=== PATIENT | male | born 1960 | race Caucasian/White ===

== ENCOUNTER 2023-10-15 21:49 | Inpatient (IN) | payer MEDICARE, OTHER ==
[~2023-10-15] VITALS: Ht 172.7 cm; Wt 73.5 kg
[~2023-10-15 21:49] MED LIST: LORA2VIA33 IM
[2023-10-15 23:23] LABS: CALCIUM, SERUM 8.9 mg/dL (8.5-10.1); CARBON DIOXIDE 27 mmol/L (21-32); CHLORIDE 105 mmol/L (98-107); CREATININE 0.9 mg/dL (0.6-1.3); GLUCOSE 140 mg/dL (74-106); POTASSIUM 3.5 mmol/L (3.5-5.1); SODIUM SERUM 141 mmol/L (136-145); UREA NITROGEN, BLOOD 28 mg/dL (7-18)
[2023-10-15 23:31] LABS: ACETAMINOPHEN <10 ug/ml (10-30); ALANINE AMINOTRANSFERASE 24 U/L (12-78); ALBUMIN 3.5 g/dL (3.4-5.0); ALCOHOL, BLOOD < 3 mg/dL (0-10); ALKALINE PHOSPHATASE 73 U/L (46-116); ASPARTATE AMINOTRANSFERASE 29 U/L (15-37); BILIRUBIN,TOTAL 0.3 mg/dL (0.2-1.0); SALICYLATE 0.5 mg/dL (2.8-20.0); TOTAL PROTEIN, SERUM 6.8 g/dL (6.4-8.2)
[2023-10-15 23:35] LABS: BASOPHILS % (AUTO) 0.6 % (0.0-2.0); EOSINOPHILS % (AUTO) 0.5 % (0.0-6.0); HEMATOCRIT 40 % (39-51); HEMOGLOBIN 13.5 g/dL (13.5-17.5); LYMPHOCYTES # (AUTO) 2.2 K/uL (0.8-4.8); LYMPHOCYTES % (AUTO) 31.9 % (20.0-44.0); MEAN CORPUSCULAR HEMOGLOBIN 31 PG (26.0-33.0); MEAN CORPUSCULAR HGB CONC 34 g/dl (31.0-36.0); MEAN CORPUSCULAR VOLUME 91 fL (80-96); MONOCYTES # (AUTO) 0.7 K/uL (0.1-1.30); MONOCYTES % (AUTO) 10.4 % (2.0-12.0); NEUTROPHILS # (AUTO) 3.9 K/uL (1.8-8.9); NEUTROPHILS % (AUTO) 56.6 % (43.0-81.0); PLATELET COUNT (AUTO) 194 K/uL (150-450); RED BLOOD CELL COUNT(AUTO) 4.42 MIL/uL (4.5-6.0); RED CELL DISTRIBUTION WIDTH 14.2 % (11.5-15.0)
[2023-10-16 00:24] LABS: APPEARANCE,URINE CLEAR (CLEAR); BILIRUBIN,URINE NEGATIVE (NEGATIVE); BLOOD, URINE NEGATIVE Ery/uL (NEGATIVE); COLOR,URINE YELLOW (YELLOW); KETONES,URINE TRACE mg/dL (NEGATIVE); LEUKOCYTE ESTERASE ,URINE NEGATIVE (NEGATIVE); NITRITE, URINE NEGATIVE (NEGATIVE); PROTEIN,URINE NEGATIVE (NEGATIVE); UGLUCOSE 1+ mg/dL (NEGATIVE); UROBILINOGEN,URINE 0.2 EU/dL (0.2)
[2023-10-16 00:26] LABS: ADD URINE CULTURE NO; BACTERIA,URINE Rare /HPF (None Seen); RBC,URINE 0-2 /HPF (0-2); SQUAMOUS EPITHELIAL CELL,UR Few /HPF (None Seen); WBC,URINE 0-2 /HPF (0-3)
[2023-10-16 00:40] LABS: AMPHETAMINE, URINE NEGATIVE (NEGATIVE); BARBITURATE, URINE NEGATIVE (NEGATIVE); BENZODIAZEPINE, URINE NEGATIVE (NEGATIVE); CANNABINOID, URINE NEGATIVE (NEGATIVE); COCCAINE, URINE NEGATIVE (NEGATIVE); OPIATE, URINE NEGATIVE (NEGATIVE); PHENCYCLIDINE SCREEN,URINE NEGATIVE (NEGATIVE)
[2023-10-16] MEDS ORDERED: DIVA250T4 PO (08:33)
[2023-10-16] MEDS ORDERED: BUSP7.5T7 PO (08:33)
[2023-10-16] MEDS ORDERED: BLOO-668 IN (08:33)
[2023-10-16] MEDS ORDERED: RISP1TAB97 PO (08:33)
[2023-10-16] MEDS ORDERED: DIVALPROEX SODIUM 250 MG TABLET.DR PO SCH (13:00)
[2023-10-16] MEDS ORDERED: MAGNESIUM HYDROXIDE 30 ML UDC PO PRN (15:00)
[2023-10-16] MEDS ORDERED: ACETAMINOPHEN 325 MG TABLET PO PRN (15:00)
[2023-10-16] MEDS ORDERED: MAG HYDROX/AL HYDROX/SIMETH 30 ML UDC PO PRN (15:00)
[2023-10-16] MEDS: BLOOD SUGAR DIAGNOSTIC 1 EACH STRIP IN ONE (15:56)
[2023-10-16 16:00] VITALS: BP 142/79; TEMP 97.3; O2SAT 94
[2023-10-16] MEDS ORDERED: busPIRone 5 MG TABLET PO SCH (17:00)
[2023-10-16 20:00] VITALS: BP 138/67; TEMP 98.4; O2SAT 95
[2023-10-17] MEDS: clonazePAM 0.5 MG TABLET PO PRN (03:01)
[2023-10-17 08:00] VITALS: BP 127/90; TEMP 98; O2SAT 100
[2023-10-17] MEDS: Z GUARD REMEDY 4 OZ OINT TP SCH (08:00)
[2023-10-17] MEDS ORDERED: risperiDONE 0.25 MG TABLET PO SCH (09:00)
[2023-10-17 16:00] VITALS: BP 136/80; TEMP 98.6; O2SAT 98
[2023-10-17] MEDS: DIVALPROEX SODIUM 125 MG CAP.SPRINK PO SCH (17:49)
[2023-10-17] MEDS: risperiDONE 1 MG TABLET PO SCH (17:49)
[2023-10-17 20:00] VITALS: BP 114/90; TEMP 98.4; O2SAT 98
[2023-10-18 08:00] VITALS: BP 151/93; TEMP 97.7; O2SAT 98
[2023-10-18 08:00] LABS: ALBUMIN 3.7 g/dL (3.4-5.0); BILIRUBIN,TOTAL 0.6 mg/dL (0.2-1.0); CALCIUM, SERUM 9.4 mg/dL (8.5-10.1); CREATININE 0.9 mg/dL (0.6-1.3); POTASSIUM 3.7 mmol/L (3.5-5.1); TOTAL PROTEIN, SERUM 7.6 g/dL (6.4-8.2)
[2023-10-18 08:21] LABS: CREATININE 0.9 mg/dL (0.6-1.3)
[2023-10-18 11:18] LABS: CHOLESTEROL 166 mg/dL (<200); HDL CHOLESTEROL 55 mg/dL (40-60); LDL 78 mg/dL (0-99); TRIGLYCERIDES 100 mg/dL (30-150)
[2023-10-18 16:00] VITALS: BP 132/92; TEMP 97.8; O2SAT 96
[2023-10-18] MEDS: risperiDONE 1 MG TABLET PO SCH (17:00)
[2023-10-18 20:19] VITALS: BP 145/73; TEMP 97.9; O2SAT 100
[2023-10-19 08:00] VITALS: BP 146/98; TEMP 98.6; O2SAT 98
[2023-10-19] MEDS: OLANZAPINE 10 MG VIAL IM ONE (09:46)
[2023-10-19] MEDS: risperiDONE 1 MG TABLET PO SCH (13:00)
[2023-10-19] MEDS: diphenhydrAMINE HCL 50 MG/ML VIAL IM ONE (13:40)
[2023-10-19] MEDS: HALOPERIDOL LACTATE INJ 5 MG/ML VIAL IM ONE (13:40)
[2023-10-19 16:00] VITALS: BP 123/97; TEMP 98.2; O2SAT 98
[2023-10-19 20:40] VITALS: TEMP 98.4; O2SAT 98
[2023-10-19] MEDS: TEMAZEPAM 15 MG CAPSULE PO PRN (22:57)
[2023-10-20 08:00] VITALS: BP 142/99; TEMP 97.9; O2SAT 100
[2023-10-20 16:00] VITALS: BP 112/58; TEMP 98.4; O2SAT 97
[2023-10-20 20:49] VITALS: BP 132/88; TEMP 98.4; O2SAT 98
[2023-10-21 08:00] VITALS: BP 119/78; TEMP 97.7; O2SAT 98
[2023-10-21] MEDS: diphenhydrAMINE HCL 50 MG/ML VIAL IM ONE (08:49)
[2023-10-21] MEDS: HALOPERIDOL LACTATE INJ 5 MG/ML VIAL IM ONE (08:49)
[2023-10-21 16:00] VITALS: BP 134/85; TEMP 98.6; O2SAT 97
[2023-10-21 21:13] VITALS: BP 135/85; TEMP 97.8; O2SAT 96
[2023-10-22 08:00] VITALS: BP 152/67; TEMP 98.6; O2SAT 99
[2023-10-22] MEDS: risperiDONE-M 0.5 MG TAB.RAPDIS PO SCH (10:30)
[2023-10-22 16:00] VITALS: BP 117/77; TEMP 97.9; O2SAT 99
[2023-10-22] MEDS: diphenhydrAMINE HCL 50 MG/ML VIAL IM ONE ×2 (19:53→23:52)
[2023-10-22] MEDS: HALOPERIDOL LACTATE INJ 5 MG/ML VIAL IM ONE ×2 (19:54→23:52)
[2023-10-22 21:16] VITALS: BP 145/88; TEMP 97.9; O2SAT 99
[2023-10-23 08:00] VITALS: BP 136/90; TEMP 98.6; O2SAT 98
[2023-10-23] MEDS: HALOPERIDOL LACTATE INJ 5 MG/ML VIAL IM PRN (08:07)
[2023-10-23] MEDS: diphenhydrAMINE HCL 50 MG/ML VIAL IM PRN (08:07)
[2023-10-23 16:00] VITALS: BP 125/88; TEMP 97.6; O2SAT 100
[2023-10-23 20:00] VITALS: BP 130/85; TEMP 97.9; O2SAT 96
[2023-10-24 08:00] VITALS: BP 130/99; TEMP 97.6; O2SAT 98
[2023-10-24 16:00] VITALS: BP 130/87; TEMP 97.9; O2SAT 96
[2023-10-24 20:00] VITALS: BP 130/88; TEMP 98.3; O2SAT 96
[2023-10-25 08:00] VITALS: BP 130/81; TEMP 98; O2SAT 96
[2023-10-25 16:00] VITALS: BP 136/80; TEMP 98; O2SAT 100
[2023-10-26 08:00] VITALS: BP 139/97; TEMP 97.9; O2SAT 97
[2023-10-26 16:00] VITALS: BP 119/57; TEMP 97.8; O2SAT 99
[2023-10-26 20:19] VITALS: BP 128/60; TEMP 98.3; O2SAT 98
[2023-10-27 08:00] VITALS: BP 146/88; TEMP 98.1; O2SAT 98
[2023-10-27] MEDS: risperiDONE-M 0.5 MG TAB.RAPDIS PO SCH (13:00)
[2023-10-27] MEDS: DIVALPROEX SODIUM 125 MG CAP.SPRINK PO SCH (13:00)
[2023-10-27 16:00] VITALS: BP 156/90; TEMP 98.1; O2SAT 97
[2023-10-27 20:00] VITALS: BP 102/84; TEMP 98; O2SAT 99
[2023-10-27 20:54] VITALS: BP 102/84; TEMP 98; O2SAT 99
[2023-10-28 08:00] VITALS: BP 145/81; TEMP 98.6; O2SAT 96
[2023-10-28] MEDS: HALOPERIDOL LACTATE INJ 5 MG/ML VIAL IM PRN (12:25)
[2023-10-28] MEDS: diphenhydrAMINE HCL 50 MG/ML VIAL IM PRN (12:26)
[2023-10-28 16:00] VITALS: BP 118/83; TEMP 97.7; O2SAT 97
[2023-10-28 20:45] VITALS: BP 101/61; TEMP 98.2; O2SAT 99
[2023-10-29] MEDS: diphenhydrAMINE HCL 50 MG/ML VIAL IM ONE (07:13)
[2023-10-29] MEDS: LORAZEPAM INJ 2 MG/ML VIAL IM/IV ONE (07:13)
[2023-10-29] MEDS: HALOPERIDOL LACTATE INJ 5 MG/ML VIAL IM ONE (07:13)
[2023-10-29] MEDS: LORAZEPAM INJ 2 MG/ML VIAL ONE (07:57)
[2023-10-29 08:00] VITALS: BP 110/87; TEMP 98.7; O2SAT 98
[2023-10-29] MEDS: METFORMIN 500 MG TABLET PO SCH (09:17)
[2023-10-29] MEDS ORDERED: diphenhydrAMINE HCL 50 MG/ML VIAL IV PRN (12:30)
[2023-10-29] MEDS: HALOPERIDOL DECANOATE IM 100 MG/ML AMPUL IM ONE (14:27)
[2023-10-29 16:00] VITALS: BP 111/80; TEMP 98.6; O2SAT 98
[2023-10-29 20:21] VITALS: BP 103/73; TEMP 98.1; O2SAT 98
[2023-10-29] MEDS: risperiDONE-M 0.5 MG TAB.RAPDIS ONE (22:47)
[2023-10-30 08:00] VITALS: BP 130/70; TEMP 97.6; O2SAT 98
[2023-10-30 16:00] VITALS: BP 129/63; TEMP 98; O2SAT 98
[2023-10-31 08:00] VITALS: BP 160/90; TEMP 98; O2SAT 99
[2023-10-31 15:30] VITALS: BP 130/86; TEMP 98; O2SAT 100
== END 2023-10-31 16:00 | DRG 885 ==
LOC: ER 22:15 → TRANSITION 10-16 10:28 → GPS 10-16 14:01
PROVIDERS: ADMIT Psychiatry & Neurology Psychiatry; ATTEND Nurse Practitioner Acute Care
DX: F25.0 Schizoaffective disorder, bipolar type (principal); I10 Essential (primary) hypertension; E03.9 Hypothyroidism, unspecified; E78.5 Hyperlipidemia, unspecified; R26.81 Unsteadiness on feet; F41.9 Anxiety disorder, unspecified; Z11.52 Encounter for screening for COVID-19
CPT/HCPCS: 36415; 80053-TC; 80061-TC; 81001; 82565-TC; 82962-TC; 85025-TC; 97112-TC; 97116-TC; 97530-TC; G0480; J1200; J1630; J1631; J2060; J3490

== ENCOUNTER 2024-03-26 12:56 | Inpatient (IN) | payer MEDICARE, OTHER ==
[~2024-03-26] VITALS: Ht 165.1 cm; Wt 74.8 kg
[~2024-03-26 12:56] MED LIST changes: +BLOO-668 IN; +BUSP7.5T7 PO; +DIVA250T4 PO; +RISP1TAB97 PO
[2024-03-26 13:36] LABS: BASOPHILS % (AUTO) 0.6 % (0.0-2.0); EOSINOPHILS % (AUTO) 0.4 % (0.0-6.0); HEMATOCRIT 48 % (39-51); HEMOGLOBIN 16.3 g/dL (13.5-17.5); LYMPHOCYTES # (AUTO) 1.7 K/uL (0.8-4.8); LYMPHOCYTES % (AUTO) 31.8 % (20.0-44.0); MEAN CORPUSCULAR HEMOGLOBIN 32 PG (26.0-33.0); MEAN CORPUSCULAR HGB CONC 34 g/dl (31.0-36.0); MEAN CORPUSCULAR VOLUME 92 fL (80-96); MONOCYTES # (AUTO) 0.4 K/uL (0.1-1.30); NEUTROPHILS # (AUTO) 3.2 K/uL (1.8-8.9); NEUTROPHILS % (AUTO) 59.2 % (43.0-81.0); PLATELET COUNT (AUTO) 202 K/uL (150-450); RED BLOOD CELL COUNT(AUTO) 5.18 MIL/uL (4.5-6.0); RED CELL DISTRIBUTION WIDTH 13.8 % (11.5-15.0); WHITE BLOOD COUNT (AUTO) 5.4 K/uL (4.3-11.0)
[2024-03-26 13:42] LABS: CALCIUM, SERUM 9.5 mg/dL (8.5-10.1); CARBON DIOXIDE 29 mmol/L (21-32); CHLORIDE 103 mmol/L (98-107); CREATININE 0.9 mg/dL (0.6-1.3); GLUCOSE 171 mg/dL (74-106); POTASSIUM 4.5 mmol/L (3.5-5.1); SODIUM SERUM 140 mmol/L (136-145); UREA NITROGEN, BLOOD 21 mg/dL (7-18)
[2024-03-26 13:47] LABS: ALANINE AMINOTRANSFERASE 16 U/L (12-78); ALBUMIN 3.6 g/dL (3.4-5.0); ALCOHOL, BLOOD < 3 mg/dL (0-10); ALKALINE PHOSPHATASE 84 U/L (46-116); ASPARTATE AMINOTRANSFERASE 12 U/L (15-37); BILIRUBIN,DIRECT 0.1 mg/dL (0.0-0.2); BILIRUBIN,TOTAL 0.3 mg/dL (0.2-1.0); TOTAL PROTEIN, SERUM 7.4 g/dL (6.4-8.2)
[2024-03-26 13:49] LABS: ACETAMINOPHEN <10 ug/ml (10-30); SALICYLATE 1.4 mg/dL (2.8-20.0)
[2024-03-26] MEDS ORDERED: ACET-868 PO (14:27)
[2024-03-26] MEDS ORDERED: DOCU100T2 PO (14:27)
[2024-03-26] MEDS ORDERED: BENZ0.5T43 PO (14:27)
[2024-03-26] MEDS ORDERED: DIVA-78 PO (14:27)
[2024-03-26] MEDS ORDERED: QUET100T PO (14:27)
[2024-03-26] MEDS ORDERED: OLAN15TA3 PO (14:27)
[2024-03-26 15:02] LABS: APPEARANCE,URINE CLEAR (CLEAR); BILIRUBIN,URINE NEGATIVE (NEGATIVE); BLOOD, URINE NEGATIVE Ery/uL (NEGATIVE); COLOR,URINE YELLOW (YELLOW); KETONES,URINE TRACE mg/dL (NEGATIVE); LEUKOCYTE ESTERASE ,URINE NEGATIVE (NEGATIVE); NITRITE, URINE NEGATIVE (NEGATIVE); PH,URINE 7.5 (5.0-8.0); PROTEIN,URINE NEGATIVE (NEGATIVE); UGLUCOSE 2+ mg/dL (NEGATIVE)
[2024-03-26 15:29] LABS: AMPHETAMINE, URINE NEGATIVE (NEGATIVE); BARBITURATE, URINE NEGATIVE (NEGATIVE); BENZODIAZEPINE, URINE NEGATIVE (NEGATIVE); CANNABINOID, URINE NEGATIVE (NEGATIVE); COCCAINE, URINE NEGATIVE (NEGATIVE); OPIATE, URINE NEGATIVE (NEGATIVE); PHENCYCLIDINE SCREEN,URINE NEGATIVE (NEGATIVE)
[2024-03-26 15:56] LABS: ADD URINE CULTURE NO; BACTERIA,URINE None seen /HPF (None Seen); RBC,URINE 0-2 /HPF (0-2); SQUAMOUS EPITHELIAL CELL,UR 0-2 /HPF (None Seen); WBC,URINE 0-2 /HPF (0-3)
[2024-03-26 16:00] VITALS: BP 158/88; TEMP 97.3; O2SAT 96
[2024-03-26 16:21] VITALS: BP 158/88; TEMP 97.3; O2SAT 96
[2024-03-26] MEDS ORDERED: MAGNESIUM HYDROXIDE 30 ML UDC PO PRN (16:30)
[2024-03-26] MEDS ORDERED: ACETAMINOPHEN 325 MG TABLET PO PRN ×2 (16:30→18:30)
[2024-03-26] MEDS ORDERED: clonazePAM 0.5 MG TABLET PO PRN (16:30)
[2024-03-26] MEDS: BLOOD SUGAR DIAGNOSTIC 1 EACH STRIP IN ONE (16:30)
[2024-03-26 20:03] VITALS: BP 140/79; TEMP 98.2; O2SAT 95
[2024-03-26] MEDS ORDERED: clonazePAM 0.5 MG TABLET PO ONE (23:30)
[2024-03-26] MEDS ORDERED: TEMAZEPAM 7.5 MG CAPSULE PO ONE (23:30)
[2024-03-27 07:13] LABS: ALBUMIN 3.8 g/dL (3.4-5.0); BILIRUBIN,TOTAL 0.5 mg/dL (0.2-1.0); CALCIUM, SERUM 9.5 mg/dL (8.5-10.1); CREATININE 1.1 mg/dL (0.6-1.3); POTASSIUM 4.3 mmol/L (3.5-5.1); TOTAL PROTEIN, SERUM 7.7 g/dL (6.4-8.2)
[2024-03-27 07:25] LABS: THYROID STIMULATING HORMONE 5.76 uIU/mL (0.358-3.74)
[2024-03-27 08:00] VITALS: BP 118/72; TEMP 98; O2SAT 96
[2024-03-27] MEDS ORDERED: DIVALPROEX SODIUM 500 MG TABLET.DR PO SCH (09:00)
[2024-03-27] MEDS: BENZTROPINE MESYLATE (1 MG) 1 MG TABLET PO SCH ×2 (09:34→20:32)
[2024-03-27] MEDS: DOCUSATE SODIUM 100 MG CAPSULE PO PRN (09:35)
[2024-03-27 16:00] VITALS: BP 113/77; TEMP 98; O2SAT 98
[2024-03-27] MEDS: risperiDONE 1 MG TABLET PO SCH (16:52)
[2024-03-27] MEDS: DIVALPROEX SODIUM 250 MG TABLET.DR PO SCH (16:52)
[2024-03-27 20:45] VITALS: BP 113/61; TEMP 97.9; O2SAT 95
[2024-03-28 08:00] VITALS: BP 111/67; TEMP 98; O2SAT 96
[2024-03-28 16:00] VITALS: BP 100/60; TEMP 97.6; O2SAT 96
[2024-03-28] MEDS: risperiDONE 1 MG TABLET PO SCH (17:06)
[2024-03-28] MEDS: BENZTROPINE MESYLATE (1 MG) 1 MG TABLET PO SCH (17:07)
[2024-03-28 20:19] VITALS: BP 99/66; TEMP 97.9; O2SAT 96
[2024-03-29] MEDS: LORAZEPAM 0.5 MG TABLET PO PRN (00:07)
[2024-03-29 20:32] VITALS: BP 101/56; TEMP 98; O2SAT 96
[2024-03-30 08:00] VITALS: BP 125/79; TEMP 97.8; O2SAT 96
[2024-03-30 16:00] VITALS: BP 112/69; TEMP 97.8; O2SAT 95
[2024-03-30 20:11] VITALS: BP 157/86; TEMP 98.6; O2SAT 92
[2024-03-31 08:00] VITALS: BP 113/67; TEMP 97.6; O2SAT 99
[2024-03-31] MEDS: LamoTRIgine 25 MG TABLET PO SCH (08:09)
[2024-03-31 16:00] VITALS: BP 103/77; TEMP 98.6; O2SAT 98
[2024-03-31 20:00] VITALS: BP 101/58; TEMP 98.1; O2SAT 95
[2024-04-01 08:00] VITALS: BP 90/60; TEMP 98; O2SAT 96
[2024-04-01 16:00] VITALS: BP 119/63; TEMP 97.5; O2SAT 96
[2024-04-01] MEDS: METFORMIN 500 MG TABLET PO SCH (16:42)
[2024-04-01 20:00] VITALS: BP 105/58; TEMP 97.9; O2SAT 100
[2024-04-02 08:00] VITALS: BP 106/66; TEMP 98; O2SAT 98
[2024-04-02 16:00] VITALS: BP 108/60; TEMP 97.8; O2SAT 99
[2024-04-02 20:00] VITALS: BP 107/66; TEMP 97.9; O2SAT 98
[2024-04-03 08:00] VITALS: BP 112/69; TEMP 98.3; O2SAT 95
[2024-04-03 16:00] VITALS: BP 126/71; TEMP 97.3; O2SAT 97
[2024-04-03 20:15] VITALS: BP 108/74; TEMP 97.5; O2SAT 98
[2024-04-04 08:00] VITALS: BP 107/65; TEMP 97.7; O2SAT 97
[2024-04-04 16:00] VITALS: BP 96/67; TEMP 98.7; O2SAT 96
[2024-04-04 20:49] VITALS: BP 103/58; TEMP 98.7; O2SAT 98
[2024-04-05] MEDS: TEMAZEPAM 7.5 MG CAPSULE PO PRN (20:06)
[2024-04-06 08:00] VITALS: BP 135/75; TEMP 97.8; O2SAT 100
[2024-04-06] MEDS: MAG HYDROX/AL HYDROX/SIMETH 30 ML UDC PO PRN (13:35)
[2024-04-06 16:13] VITALS: BP 96/63; TEMP 98.1; O2SAT 99
[2024-04-06 20:00] VITALS: BP 115/70; TEMP 98.5; O2SAT 98
[2024-04-07 08:00] VITALS: BP 110/58; TEMP 97; O2SAT 97
[2024-04-07 16:00] VITALS: BP 124/72; TEMP 97.7; O2SAT 98
[2024-04-07 20:00] VITALS: BP 105/65; TEMP 97.9; O2SAT 100
[2024-04-08 08:00] VITALS: BP 110/57; TEMP 97.8; O2SAT 96
[2024-04-08 16:00] VITALS: BP 104/55; TEMP 97.9; O2SAT 97
[2024-04-08 19:53] VITALS: BP 99/71; TEMP 97.8; O2SAT 97
[2024-04-09 08:00] VITALS: BP 120/69; TEMP 98.6; O2SAT 94
== END 2024-04-09 13:15 | DRG 885 ==
LOC: ER 13:00 → GPS 15:15
PROVIDERS: ADMIT Psychiatry & Neurology Psychosomatic Medicine; ATTEND Nurse Practitioner Acute Care
DX: F25.0 Schizoaffective disorder, bipolar type (principal); F03.94 Unspecified dementia, unspecified severity, with anxiety; F03.918 Unspecified dementia, unspecified severity, with other behavioral disturbance; F03.92 Unspecified dementia, unspecified severity, with psychotic disturbance; E86.0 Dehydration; M81.0 Age-related osteoporosis without current pathological fracture; Z73.6 Limitation of activities due to disability; I10 Essential (primary) hypertension; M15.9 Polyosteoarthritis, unspecified; E78.5 Hyperlipidemia, unspecified; E03.8 Other specified hypothyroidism; F41.9 Anxiety disorder, unspecified; E11.9 Type 2 diabetes mellitus without complications; M62.50 Muscle wasting and atrophy, not elsewhere classified, unspecified site; Z79.899 Other long term (current) drug therapy; Z91.148 Patient's other noncompliance with medication regimen for other reason; Z53.20 Procedure and treatment not carried out because of patient's decision for unspecified reasons; H93.13 Tinnitus, bilateral; R79.89 Other specified abnormal findings of blood chemistry; F39 Unspecified mood [affective] disorder; R26.81 Unsteadiness on feet; E03.9 Hypothyroidism, unspecified; F29 Unspecified psychosis not due to a substance or known physiological condition
CPT/HCPCS: 36415; 80048-TC; 80053-TC; 80061-TC; 80076-TC; 81001; 82565-TC; 84439-TC; 84443-TC; 85025-TC; 97116-TC; G0480

== ENCOUNTER 2024-11-23 01:23 | Inpatient (IN) | payer MEDICARE, OTHER ==
[~2024-11-23] VITALS: Ht 167.6 cm; Wt 64.4 kg
[~2024-11-23 01:23] MED LIST changes: +ACET-868 PO; +BENZ0.5T43 PO; -BLOO-668 IN; -BUSP7.5T7 PO; +DIVA-78 PO; -DIVA250T4 PO; +DOCU100T2 PO; -LORA2VIA33 IM; +OLAN15TA3 PO; +QUET100T PO; -RISP1TAB97 PO
[2024-11-23] MEDS ORDERED: METF-440 PO (03:58)
[2024-11-23] MEDS ORDERED: LAMO100T17 PO (03:58)
[2024-11-23] MEDS ORDERED: GABA-536 PO (03:58)
[2024-11-23] MEDS ORDERED: INSU100V3 SQ (03:58)
[2024-11-23] MEDS ORDERED: BISA10SU61 RC (03:58)
[2024-11-23] MEDS ORDERED: NA P133E RC (03:58)
[2024-11-23] MEDS ORDERED: RISP1TAB97 PO (03:58)
[2024-11-23] MEDS ORDERED: MAGN400O21 PO (03:58)
[2024-11-23] MEDS ORDERED: DOCU-141 PO (03:58)
[2024-11-23 04:04] LABS: CALCIUM, SERUM 9.6 mg/dL (8.5-10.1); CARBON DIOXIDE 28 mmol/L (21-32); CHLORIDE 105 mmol/L (98-107); CREATININE 0.9 mg/dL (0.6-1.3); GLUCOSE 94 mg/dL (74-106); SODIUM SERUM 140 mmol/L (136-145); UREA NITROGEN, BLOOD 17 mg/dL (7-18)
[2024-11-23 04:06] LABS: SERUM AMMONIA 11 umol/L (11-32)
[2024-11-23 04:10] LABS: ALANINE AMINOTRANSFERASE 22 U/L (12-78); ALBUMIN 3.9 g/dL (3.4-5.0); ALCOHOL, BLOOD < 3 mg/dL (0-10); ALKALINE PHOSPHATASE 85 U/L (46-116); ASPARTATE AMINOTRANSFERASE 27 U/L (15-37); BILIRUBIN,TOTAL 0.4 mg/dL (0.2-1.0); TOTAL PROTEIN, SERUM 7.1 g/dL (6.4-8.2)
[2024-11-23 04:11] LABS: ACETAMINOPHEN <10 ug/ml (10-30); BASOPHILS % (AUTO) 0.6 % (0.0-2.0); EOSINOPHILS % (AUTO) 0.9 % (0.0-6.0); HEMATOCRIT 46 % (39-51); LYMPHOCYTES # (AUTO) 1.1 K/uL (0.8-4.8); LYMPHOCYTES % (AUTO) 26.3 % (20.0-44.0); MEAN CORPUSCULAR HEMOGLOBIN 31 PG (26.0-33.0); MEAN CORPUSCULAR HGB CONC 33 g/dl (31.0-36.0); MEAN CORPUSCULAR VOLUME 94 fL (80-96); MONOCYTES # (AUTO) 0.4 K/uL (0.1-1.30); MONOCYTES % (AUTO) 9.6 % (2.0-12.0); NEUTROPHILS # (AUTO) 2.7 K/uL (1.8-8.9); NEUTROPHILS % (AUTO) 62.6 % (43.0-81.0); PLATELET COUNT (AUTO) 195 K/uL (150-450); RED BLOOD CELL COUNT(AUTO) 4.91 MIL/uL (4.5-6.0); RED CELL DISTRIBUTION WIDTH 15.4 % (11.5-15.0); SALICYLATE 0.5 mg/dL (2.8-20.0); WHITE BLOOD COUNT (AUTO) 4.2 K/uL (4.3-11.0)
[2024-11-23 04:43] LABS: APPEARANCE,URINE CLEAR (CLEAR); BILIRUBIN,URINE NEGATIVE (NEGATIVE); BLOOD, URINE NEGATIVE Ery/uL (NEGATIVE); COLOR,URINE YELLOW (YELLOW); KETONES,URINE TRACE mg/dL (NEGATIVE); LEUKOCYTE ESTERASE ,URINE NEGATIVE (NEGATIVE); NITRITE, URINE NEGATIVE (NEGATIVE); PROTEIN,URINE NEGATIVE (NEGATIVE); UGLUCOSE NEGATIVE (NEGATIVE); UROBILINOGEN,URINE 0.2 EU/dL (0.2)
[2024-11-23 05:01] LABS: AMPHETAMINE, URINE NEGATIVE (NEGATIVE); BARBITURATE, URINE NEGATIVE (NEGATIVE); BENZODIAZEPINE, URINE NEGATIVE (NEGATIVE); CANNABINOID, URINE NEGATIVE (NEGATIVE); COCCAINE, URINE NEGATIVE (NEGATIVE); OPIATE, URINE NEGATIVE (NEGATIVE); PHENCYCLIDINE SCREEN,URINE NEGATIVE (NEGATIVE)
[2024-11-23 05:20] LABS: ADD URINE CULTURE NO; BACTERIA,URINE Few /HPF (None Seen); RBC,URINE 0-2 /HPF (0-2); SQUAMOUS EPITHELIAL CELL,UR Few /HPF (None Seen); WBC,URINE 0-2 /HPF (0-3)
[2024-11-23] MEDS ORDERED: OLANZAPINE 10 MG VIAL IM ONE (06:52)
[2024-11-23] MEDS: OLANZAPINE 10 MG VIAL IM ONE (06:58)
[2024-11-23 09:10] VITALS: BP 164/73; O2SAT 98
[2024-11-23] MEDS ORDERED: MAGN400O6 PO (09:45)
[2024-11-23] MEDS ORDERED: LAMO150T6 PO (09:45)
[2024-11-23] MEDS ORDERED: BENZ1TAB7 PO (09:45)
[2024-11-23] MEDS ORDERED: CHOL100043 PO (09:47)
[2024-11-23] MEDS: diphenhydrAMINE HCL 50 MG/ML VIAL IM ONE (09:53)
[2024-11-23] MEDS: HALOPERIDOL LACTATE INJ 5 MG/ML VIAL IM ONE (09:53)
[2024-11-23] MEDS ORDERED: MAG HYDROX/AL HYDROX/SIMETH 30 ML UDC PO PRN (10:00)
[2024-11-23] MEDS: BLOOD SUGAR DIAGNOSTIC 1 EACH STRIP IN ONE (10:00)
[2024-11-23] MEDS ORDERED: DEXTROSE 50%-WATER 50 ML DISP.SYRIN IV PRN (11:30)
[2024-11-23] MEDS: DIVALPROEX SODIUM 250 MG TABLET.DR PO SCH (13:19)
[2024-11-23] MEDS: BLOOD SUGAR DIAGNOSTIC 1 EACH STRIP VI SCH (13:20)
[2024-11-23 16:00] VITALS: BP 164/94; TEMP 97.8; O2SAT 98
[2024-11-23] MEDS: ACETAMINOPHEN 325 MG TABLET PO PRN (16:19)
[2024-11-23] MEDS: LORAZEPAM 1 MG TABLET PO PRN (16:19)
[2024-11-23] MEDS: MAGNESIUM HYDROXIDE 30 ML UDC PO PRN (18:01)
[2024-11-23] MEDS: risperiDONE 1 MG TABLET PO SCH (18:01)
[2024-11-23] MEDS: METFORMIN 500 MG TABLET PO SCH (18:10)
[2024-11-23 19:09] LABS: THYROID STIMULATING HORMONE 3.06 uIU/mL (0.358-3.74)
[2024-11-23 20:01] VITALS: BP 114/84; TEMP 98.5; O2SAT 98
[2024-11-23] MEDS: LITHIUM CARBONATE 150 MG CAPSULE PO SCH (21:26)
[2024-11-23] MEDS: ZOLPIDEM TARTRATE 5 MG TABLET PO PRN (23:13)
[2024-11-24 08:00] VITALS: BP 109/82; TEMP 97.8; O2SAT 98
[2024-11-24 08:42] LABS: BILIRUBIN,TOTAL 0.7 mg/dL (0.2-1.0); CALCIUM, SERUM 9.2 mg/dL (8.5-10.1); CREATININE 0.9 mg/dL (0.6-1.3); POTASSIUM 3.9 mmol/L (3.5-5.1); TOTAL PROTEIN, SERUM 7.6 g/dL (6.4-8.2)
[2024-11-24 08:54] LABS: CHOLESTEROL 221 mg/dL (<200); HDL CHOLESTEROL 76 mg/dL (40-60); LDL 117 mg/dL (0-99); TRIGLYCERIDES 82 mg/dL (30-150)
[2024-11-24 16:00] VITALS: BP 131/89; TEMP 98.8; O2SAT 97
[2024-11-24] MEDS: INSULIN REGULAR, HUMAN 100 UNIT/ML 3 ML VIAL SQ PRN (17:19)
[2024-11-24 20:01] VITALS: BP 136/81; TEMP 98.7; O2SAT 97
[2024-11-24] MEDS: *INSULIN REGULAR(HUMULIN R)HUM 100 UNIT/ML VIAL SQ PRN (22:09)
[2024-11-25 08:00] VITALS: BP 138/79; TEMP 98; O2SAT 98
[2024-11-25 16:00] VITALS: BP 140/91; TEMP 98; O2SAT 97
[2024-11-25] MEDS: risperiDONE 1 MG TABLET PO SCH (17:01)
[2024-11-25 20:00] VITALS: BP 103/84; TEMP 99.1; O2SAT 98
[2024-11-26 08:00] VITALS: BP 151/95; TEMP 98; O2SAT 100
[2024-11-26 16:00] VITALS: BP 119/67; TEMP 98.6; O2SAT 98
[2024-11-26 21:15] VITALS: BP 128/68; TEMP 97.7; O2SAT 97
[2024-11-27 08:00] VITALS: BP 127/78; TEMP 98; O2SAT 98
[2024-11-27 16:00] VITALS: BP 137/63; TEMP 98.6; O2SAT 99
[2024-11-27 20:39] VITALS: BP 156/84; TEMP 98.6; O2SAT 98
[2024-11-28 08:00] VITALS: BP 132/82; TEMP 97.7; O2SAT 96
[2024-11-28 16:01] VITALS: BP 133/77; TEMP 98.2; O2SAT 98
[2024-11-28 20:27] VITALS: BP 140/79; TEMP 98.2; O2SAT 99
[2024-11-29 08:00] VITALS: BP 162/91; TEMP 98.6; O2SAT 96
[2024-11-29] MEDS: LITHIUM CARBONATE 150 MG CAPSULE PO SCH (09:00)
[2024-11-29 16:01] VITALS: BP 136/88; TEMP 98; O2SAT 100
[2024-11-29 20:07] VITALS: BP 105/50; TEMP 98; O2SAT 100
[2024-11-30 08:00] VITALS: BP 125/93; TEMP 98.7; O2SAT 96
[2024-11-30 16:00] VITALS: BP 146/95; TEMP 98.2; O2SAT 99
[2024-11-30 20:22] VITALS: BP 119/66; TEMP 98; O2SAT 99
[2024-12-01 08:00] VITALS: BP 128/89; TEMP 97.8; O2SAT 99
[2024-12-01 16:00] VITALS: BP 125/80; TEMP 98.1; O2SAT 98
[2024-12-01] MEDS: BENZTROPINE MESYLATE (1 MG) 1 MG TABLET PO SCH (17:05)
[2024-12-01 20:00] VITALS: BP 111/55; TEMP 98.4; O2SAT 98
[2024-12-01 20:43] VITALS: BP 111/55; TEMP 98.4; O2SAT 98
[2024-12-02 08:00] VITALS: BP 138/82; TEMP 97.9; O2SAT 97
[2024-12-02 16:00] VITALS: BP 150/98; TEMP 98.6; O2SAT 98
[2024-12-02 20:25] VITALS: BP 105/60; TEMP 98; O2SAT 99
[2024-12-03 08:00] VITALS: BP 153/66; TEMP 98.7; O2SAT 96
== END 2024-12-03 12:40 | DRG 885 ==
LOC: ER 01:25 → GPS 08:29
PROVIDERS: ADMIT Psychiatry & Neurology Psychiatry; ATTEND Nurse Practitioner Acute Care
DX: F25.0 Schizoaffective disorder, bipolar type (principal); E11.9 Type 2 diabetes mellitus without complications; F41.9 Anxiety disorder, unspecified; E78.5 Hyperlipidemia, unspecified; E03.9 Hypothyroidism, unspecified; I10 Essential (primary) hypertension; Z73.6 Limitation of activities due to disability; Z79.84 Long term (current) use of oral hypoglycemic drugs; M19.90 Unspecified osteoarthritis, unspecified site; R41.9 Unspecified symptoms and signs involving cognitive functions and awareness; Z79.4 Long term (current) use of insulin; Z20.822 Contact with and (suspected) exposure to COVID-19
CPT/HCPCS: 36415; 80053-TC; 80061-TC; 80164-TC; 80178-TC; 81001; 82140-TC; 82962-TC; 84439-TC; 84443-TC; 84481; 85025-TC; 97110-TC; 97116-TC; 97530-TC; G0480; J1200; J1630; J1815; J3490